=== PATIENT | male | born 1960 | race Hispanic/Latino ===

== ENCOUNTER 2022-03-11 18:31 | Emergency (ER) | payer BC, SELFPAY ==
[2022-03-11 18:37] VITALS: BP 167/95; PULSE 92; RESP 16; TEMP 36.4; O2SAT 100
--- NOTE | 2022-03-11 20:45 | ED.WOUNDLAC ---
HPI - Wound/Laceration General Chief Complaint: Wound/Laceration Stated Complaint: leg lac Time Seen by Provider: 03/11/22 20:39 History of Present Illness HPI narrative: 61-year-old male presents the emergency room for evaluation of a right lower extremity laceration. Patient states that he was using a instrument lens grinder when the saw cut his right reinoso. Tetanus is not up-to-date. Related Data Home Medications Medication Instructions Recorded Confirmed No Home Medications 09/09/19 09/09/19 ibuprofen 800 mg PO Q6-8H PRN 09/09/19 09/09/19 tramadol 09/09/19 Allergies Allergy/AdvReac Type Severity Reaction Status Date / Time No Known Allergies Allergy Verified 03/11/22 18:48 Review of Systems Review of Systems: CONSTITUTIONAL: Denies fever, chills, or sweats. EYES: Denies visual changes, redness, or discharge. ENT: Denies rhinorrhea, congestion, sore throat, or otalgia. CARDIOVASCULAR: Denies chest pain, palpitations, or edema. RESPIRATORY: Denies cough or dyspnea. GASTROINTESTINAL: Denies abdominal pain, nausea, vomiting, or diarrhea. GENITOURINARY: Denies dysuria or hematuria. SKIN: Reports laceration to right lower extremity MUSCULOSKELETAL: Denies back pain, joint pain, or myalgia. NEUROLOGIC: Denies headache, numbness, dizziness, or weakness. PSYCHIATRIC: Denies anxiety or depression. FORMERLY [facility], [facility] Past Medical History Medical History Arthritis Gout H/O Haynes's palsy Social History Social History (Updated 09/09/19 @ 15:40 by Abdulaziz Colby) Smoking status: Never smoker Alcohol intake: former Substance use: never Exam Narrative: GENERAL: Well-appearing, well-nourished, and in no acute distress. HEAD: Normocephalic, atraumatic. EYES: PERRLA and EOMI. CHEST: Clear to auscultation. No respiratory distress. No wheezes rales or rhonchi HEART: Regular rate and rhythm. No murmur heard. Normal peripheral pulses. EXTREMITIES: Normal range of motion. No edema. SKIN: 5 cm linear laceration anterior right lower extremity NEURO: No focal deficits. Alert and oriented x3. PSYCH: Normal mood and affect. Course Vital Signs Vital signs: Vital Signs Temperature 36.4 C 03/11/22 18:37 Pulse Rate 92 03/11/22 18:37 Respiratory Rate 16 03/11/22 18:37 Blood Pressure 167/95 H 03/11/22 18:37 Pulse Oximetry 100 03/11/22 18:37 Temperature 36.4 C 03/11/22 18:37 Pulse Rate 92 03/11/22 18:37 Respiratory Rate 16 03/11/22 18:37 Blood Pressure 167/95 H 03/11/22 18:37 Pulse Oximetry 100 03/11/22 18:37 Procedures Laceration Laceration 1: Date: 03/11/22 Time: 21:46 Site: lower extremity Side (If applicable): right Size (cm): 5 Description: linear Depth: simple, single layer Local Anesthetic: lidocaine 2% and with epi Amount of anesthesia used (mL): 7 Pre-repair: irrigated ====== Skin Level ====== Skin layer closed with: nylon Size (cm): 4-0 Number of sutures: 9 Technique: simple, interrupted ====== Subcutaneous Layer ====== ====== Muscle Layer ====== ====== Tendon Layer ====== Discharge Plan Discharge Clinical Impression: Laceration of leg, right Qualifiers: Encounter type: initial encounter Qualified Code(s): S81.811A - Laceration without foreign body, right lower leg, initial encounter Patient Disposition: Home, Self-Care Condition: Stable Instructions: Antibiotic Form, Laceration (ED) Additional Instructions: Keep wound clean and dry. May apply Neosporin twice daily. Monitor for signs of infection which include: Redness, swelling, pain, purulent discharge. Sutures, in 10 to 14 days Prescriptions: No Action ibuprofen 800 mg tablet 800 mg PO Q6-8H PRN (Reason: Pain) RF: 0 No Home Medications RF: 0 tramadol RF: 0 Follow-up/Referrals: Mylene,Ori Mcginnis MD [Primary Car
[2022-03-11] MEDS: TETANUS,DIPHTHERIA,AC PERTUSSIS ADULT (0.5 ML) BOOSTRIX IM (21:00)
[2022-03-11] MEDS: LIDO 2%/EPINEPHRINE 1:100,000 20 ML VIAL (21:04)
[2022-03-11] MEDS: IPRATROPIUM BR 0.02% INH SOLN 0.5 MG/2.5 ML VIAL INHALATION (21:22)
[2022-03-11] MEDS: ALBUTEROL SULFATE NEB 2.5 MG/0.5 ML INH INHALATION (21:22)
[2022-03-11 21:25] VITALS: PULSE 94; RESP 20
[2022-03-11 21:30] VITALS: PULSE 97; RESP 20
[2022-03-11 22:23] VITALS: BP 126/74; PULSE 80; RESP 18; TEMP 36.8; O2SAT 97
== END 2022-03-11 22:26 | disposition home or self-care (01) ==
PROVIDERS: Emergency Provider Nurse Practitioner Family; PCP Internal Medicine Gastroenterology
DX: S81.811A Laceration without foreign body, right lower leg, initial encounter (principal); Z23 Encounter for immunization; M19.90 Unspecified osteoarthritis, unspecified site; M10.9 Gout, unspecified; W31.1XXA Contact with metalworking machines, initial encounter
CPT/HCPCS: 12002; 90471; 90715; 94640; 99283

== ENCOUNTER 2022-03-31 18:53 | Emergency (ER) | payer BC, SELFPAY ==
[2022-03-31 18:55] VITALS: BP 175/79; PULSE 83; RESP 20; TEMP 36.5; O2SAT 98
--- NOTE | 2022-03-31 19:52 | ED.WOUNDLAC ---
HPI - Wound/Laceration General Chief Complaint: Wound/Laceration Stated Complaint: wound infection right leg Time Seen by Provider: 03/31/22 19:40 Source: patient History of Present Illness HPI narrative: Patient presents for a wound check. Patient reports he had a laceration repair approximately 2 weeks ago sutures removed approximately 1 week ago since then they have noted redness and they fell. Drainage from the wound site so they came back in for reevaluation. Report they have been doing Neosporin over the wound site denies any fevers chills nausea vomiting or diarrhea. They also report I think this tape is irritating his skin because he has a history of psoriasis. Related Data Home Medications Medication Instructions Recorded Confirmed ibuprofen 800 mg tablet 800 mg PO Q6-8H PRN Pain 09/09/19 09/09/19 tramadol 09/09/19 Allergies Allergy/AdvReac Type Severity Reaction Status Date / Time No Known Allergies Allergy Verified 03/11/22 18:48 Review of Systems Review of Systems: CONSTITUTIONAL: Denies fever, chills, or sweats. EYES: Denies visual changes, redness, or discharge. ENT: Denies rhinorrhea, congestion, sore throat, or otalgia. CARDIOVASCULAR: Denies chest pain, palpitations, or edema. RESPIRATORY: Denies cough or dyspnea. GASTROINTESTINAL: Denies abdominal pain, nausea, vomiting, or diarrhea. GENITOURINARY: Denies dysuria or hematuria. SKIN: Denies rash or itching. MUSCULOSKELETAL: Denies back pain, joint pain, or myalgia. NEUROLOGIC: Denies headache, numbness, dizziness, or weakness. PSYCHIATRIC: Denies anxiety or depression. All systems reviewed & are unremarkable except as noted in HPI and below PMFSH Past Medical History Medical History Arthritis Gout H/O Haynes's palsy Social History Social History Smoking status: Never smoker Alcohol intake: former Substance use: never Exam Narrative: GENERAL: Well-appearing, well-nourished, and in no acute distress. HEAD: Normocephalic, atraumatic. EYES: PERRLA and EOMI. ENT: Nares clear, no rhinorrhea or epistaxis. Mucous membranes moist. EACs clear bilaterally scant fluid behind bilateral TMs appearing material behind the TMs no erythema TMs NECK: Supple. No masses. No JVD EXTREMITIES: Normal range of motion. No edema. 2 and half centimeter open wound on the right lower leg lateral aspect mild surrounding erythema no focal fluctuance no purulent drainage. NEURO: No focal deficits. Alert and oriented x3. PSYCH: Normal mood and affect. Course Vital Signs Vital signs: Vital Signs Temperature 36.5 C 03/31/22 18:55 Pulse Rate 83 03/31/22 18:55 Respiratory Rate 20 03/31/22 18:55 Blood Pressure 175/79 H 03/31/22 18:55 Pulse Oximetry 98 03/31/22 18:55 Oxygen Delivery Room Air 03/31/22 18:55 Temperature 36.5 C 03/31/22 18:55 Pulse Rate 83 03/31/22 18:55 Respiratory Rate 20 03/31/22 18:55 Blood Pressure 175/79 H 03/31/22 18:55 Pulse Oximetry 98 03/31/22 18:55 Oxygen Delivery Room Air 03/31/22 18:55 MDM - Wound/Laceration MDM Narrative Medical decision making narrative: H&P as above, vss, pt looks clinically well, exam mild erythema around open wound, labs/img considered, symptomatic relief available as needed, on reevaluation pt continues to looks clinically well. Suspect skin irritation given his history of psoriasis and reaction to the tape her symptoms may offer represent a cellulitis dns abscess, severe sepsis, necrotizing soft tissue infection. plan to tx/monitor as op w/ pcm f/u findings/plan discussed with pt, pt agree/comfortable with plan, return precautions given Discharge Plan Discharge Clinical Impression: Cellulitis Patient Disposition: Home, Self-Care Condition: Improved Instructions: Antibiotic Form, Cellulitis (ED), Wound Healing and Your Diet (ED) Additional Ins
== END 2022-03-31 20:22 | disposition home or self-care (01) ==
PROVIDERS: Emergency Provider Emergency Medicine; PCP Internal Medicine Gastroenterology
DX: L03.115 Cellulitis of right lower limb (principal)
CPT/HCPCS: 99283

== ENCOUNTER 2022-06-16 18:49 | Emergency (ER) | payer BC, SELFPAY ==
[2022-06-16] VITALS (7 sets, daily range): BP systolic 150–158; BP diastolic 73–78; PULSE 57–63; RESP 18–20; TEMP 36.6; O2SAT 93–98
--- NOTE | ~2022-06-16 | CT_ITS ---
EXAMINATION: CT BRAIN W/O DATE: 06/16/2022 19:24 INDICATION: Hypertension TECHNIQUE: Computed tomography (CT) of the head was performed without intravenous contrast. The dose- length product was 605.33 mGy-cm. Automated exposure control and iterative reconstruction technique w ere employed. COMPARISON: No prior studies for comparison. FINDINGS: Normal brain parenchymal volume for age. Normal malave-white differentiation. No acute intrac ranial hemorrhage, infarction, mass or mass effect. There are scattered mild periventricular and subcortical white matter changes, most likely related to small vessel ischemic disease (microangiopathy). No ventriculomegaly or midline shift. Midline sagittal images demonstrate a normal corpus callosum, c raniovertebral junction and sella turcica. Basilar cisterns are patent. Paranasal sinuses and mastoids are pneumatized. No depressed skull fractures. IMPRESSION: 1. No acute intracranial abnormality. Reviewed, dictated and finalized at location A.
--- NOTE | 2022-06-16 19:00 | ECG_ITS ---
Measurements Intervals [place] Rate: 57 P: 41 IA: 169 QRS: 14 QRSD: 95 T: 54 QT: 432 QTc: 422 Interpretive Statements SINUS BRADYCARDIA PROBABLE INFERIOR/POSTERIOR MYOCARDIAL INFARCTION , OLD WITH POSTERIOR EXTENSION [35 ms Q WAVE IN II/aVFPROMINENT R WAVE IN V1/ COMPARED TO ECG 09/09/2019 13:55:39 NO SIGNIFICANT CHANGE T Electronically Signed On 06-17-2022 13:56:36 CDT by Nehemias Montes De Oca M.D.
[2022-06-16 19:12] LABS: Basophils Absolute Auto 0.1 K/mm3 (0.0-0.1); Basophils Percent Auto 0.6 % (0.2-1.2); Eosinophils Absolute Auto 0.3 K/mm3 (0-0.3); Eosinophils Percent Auto 3.9 % (0-4.4); Hematocrit 41.3 % (42.0-52.0); Hemoglobin 14.3 g/dL (14.0-18.0); Immature Granulocyte Absolute 0.03 K/mm3 (0.00-0.031); Immature Granulocyte Percent A 0.4 % (0-0.5); Lymphocytes Absolute Auto 2.38 K/mm3 (0.9-3.2); Mean Corpuscular HGB Conc 34.6 g/dl (32-36); Mean Corpuscular Hemoglobin 31.3 pg (26-34); Mean Corpuscular Volume 90.4 fl (80-100); Mean Platelet Volume 9.8 fl (7.4-10.4); Monocytes Absolute Auto 0.5 K/mm3 (0.1-0.6); Monocytes Percent Auto 5.4 % (2.6-8.5); Neutrophils Absolute Auto 5.3 K/mm3 (1.3-6.7); Neutrophils Percent Auto 61.7 % (45.5-73.1); Platelet Count Result 200 k/mm3 (150-375); Red Blood Count 4.57 M/mm3 (4.6-6.20); Red Cell Distribution Width 13.3 % (11.5-14.5); White Blood Count 8.5 K/mm3 (4.5-10.0)
--- NOTE | 2022-06-16 19:18 | PC.NURSE ---
pt is in catscan via wheelchair at this time.
--- NOTE | 2022-06-16 19:21 | ED.RECABL ---
HPI - Recheck/Abnormal Lab/Rx General Chief Complaint: Recheck/Abnormal Lab/Rx Stated Complaint: high BP Time Seen by Provider: 06/16/22 19:00 Source: patient Mode of arrival: ambulatory Limitations: no limitations History of Present Illness HPI narrative: This is a 61 year old male that presents to the ER for hypertension. Reports they took his blood pressure at home and it was elevated to 180 systolic. They went to Urgent care and were sent to the ER for further evaluation. Reports a mild headache. Denies chest pain or shortness of breath. Related Data Home Medications Medication Instructions Recorded Confirmed ibuprofen 800 mg tablet 800 mg PO Q6-8H PRN Pain 09/09/19 09/09/19 tramadol 09/09/19 Allergies Allergy/AdvReac Type Severity Reaction Status Date / Time No Known Allergies Allergy Verified 06/16/22 18:59 Review of Systems Review of Systems: CONSTITUTIONAL: Denies fever CARDIOVASCULAR: Denies chest pain, or edema. RESPIRATORY: Denies dyspnea. NEUROLOGIC: Reports headache. Denies numbness, or weakness. All systems reviewed & are unremarkable except as noted in HPI and below PMFSH Past Medical History Medical History Arthritis Gout H/O Haynes's palsy Social History Social History Smoking status: Never smoker Alcohol intake: former Substance use: never Exam Narrative: GENERAL: Well-appearing, well-nourished, and in no acute distress. HEAD: Normocephalic, atraumatic. EYES: PERRLA and EOMI. ENT: Nares clear, no rhinorrhea or epistaxis. Mucous membranes moist. Oropharynx without tonsillar hypertrophy exudate or other lesions. Bilateral TMs pearly malave non-bulging NECK: Supple. No adenopathy or masses. CHEST: Clear to auscultation. No respiratory distress. No wheezes rales or rhonchi HEART: Regular rate and rhythm. No murmur heard. Normal peripheral pulses. EXTREMITIES: Normal range of motion. No edema. SKIN: Warm, dry, no rash. NEURO: No focal deficits. Alert and oriented x3. Cranial nerves II through grossly intact PSYCH: Normal mood and affect Course Vital Signs Vital signs: Vital Signs Temperature 98 F 06/16/22 18:50 Pulse Rate 63 08/14/22 18:50 Respiratory Rate 18 06/16/22 18:50 Blood Pressure 156/77 H 06/16/22 18:50 Pulse Oximetry 98 06/16/22 18:50 Temperature 98 F 06/16/22 18:50 Pulse Rate 58 L 06/16/22 19:59 Respiratory Rate 18 06/16/22 19:59 Blood Pressure 158/77 H 06/16/22 19:59 Pulse Oximetry 97 06/16/22 19:59 MDM - Recheck/Abnormal Lab/Rx MDM Narrative Medical decision making narrative: Patient presents emergency department for hypertension. Reports no known history of hypertension. Although looking at his past visits his blood pressure does seem to chronically run in the 150s. He is again today in the 150s systolic. He was also reporting a mild headache. CBC and metabolic panel without concerning findings. His glucose was mildly elevated, hemoglobin A1c makes him a prediabetic. CT scan of the brain without acute intracranial abnormality. EKG without acute ST changes. Patient updated on case findings. I attempted to reach his primary, but was unable to. Instructed to him to have some close follow-up with his primary doctor and continue to monitor his blood pressure at home. He was given warnings to return to the ER Lab Data Attestation: I reviewed the patient's lab results. Result diagrams: 06/16/22 19:08 06/16/22 19:08 Labs: Lab Results 06/16/22 06/16/22 06/16/22 Range/Units 19:08 19:08 19:08 WBC 8.5 (4.5-10.0) K/mm3 RBC 4.57 L (4.6-6.20) M/mm3 Hgb 14.3 (14.0-18.0) g/dL Hct 41.3 L (42.0-52.0) % MCV 90.4 (80-100) fl MCH 31.3 (26-34) pg MCHC 34.6 (32-36) g/dl RDW 13.3 (11.5-14.5) % Plt Count 200 (150-375) k/mm3 MPV 9.8 (7.4-10.4)
[2022-06-16 19:26] LABS: Anion Gap 10 mmol/L (8-16); Blood Urea Nitrogen 18 mg/dL (9-20); Calcium 9.1 mg/dL (8.4-10.2); Carbon Dioxide 26 mmol/L (22-30); Chloride 102 mmol/L (98-107); Estimated Glomerular Filt Rate > 60; Glucose 151 mg/dL (65-110); Potassium 3.4 mmol/L (3.4-5.0); Sodium 138 mmol/L (137-145)
[2022-06-16 19:53] LABS: Hemoglobin A1C 6.1 % (<5.7)
== END 2022-06-16 20:45 | disposition home or self-care (01) ==
PROVIDERS: Physician Assistant; Emergency Provider Preventive Medicine Aerospace Medicine; PCP Internal Medicine Gastroenterology
DX: I10 Essential (primary) hypertension (principal); M19.90 Unspecified osteoarthritis, unspecified site; M10.9 Gout, unspecified; R73.03 Prediabetes; R00.1 Bradycardia, unspecified; R94.31 Abnormal electrocardiogram [ECG] [EKG]
CPT/HCPCS: 36415; 70450; 80048; 83036; 85025; 93005; 99284

== ENCOUNTER 2023-02-18 08:17 | Outpatient (CLI) | payer BC, SELFPAY ==
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
[2023-03-12 12:55] VITALS: BMI 33.5
== END 2023-02-19 10:30 | disposition home or self-care (01) ==
LOC: ANHCSM 08:18
PROVIDERS: PCP Internal Medicine Gastroenterology; Visit Provider Physician Assistant
DX: G47.10 Hypersomnia, unspecified (principal)
CPT/HCPCS: 95806